=== PATIENT | male | born 1990 | race African-American/Black ===

== ENCOUNTER 2016-06-04 04:17 | Emergency (ER) | payer MEDICAID ==
[~2016-06-04] VITALS: Ht 180.3 cm; Wt 59.0 kg
[~2016-06-04 04:17] MED LIST: HYDR-523 PO
[2016-06-04 05:45] VITALS: BP 130/79
== END 2016-06-04 07:08 | disposition home or self-care (01) ==
LOC: ER 04:17
DX: J02.9 Acute pharyngitis, unspecified (principal); F17.200 Nicotine dependence, unspecified, uncomplicated; F12.10 Cannabis abuse, uncomplicated
CPT/HCPCS: 99283

== ENCOUNTER 2018-02-06 20:54 | Emergency (ER) | payer MEDICAID ==
[~2018-02-06] VITALS: Ht 182.9 cm; Wt 64.0 kg
[2018-02-07] MEDS ORDERED: ONDANSETRON 4MG ODT PO ONE (00:15)
[2018-02-07] MEDS ORDERED: FLUORESCEIN SODIUM 1MG/STRIP OP ONE (00:15)
[2018-02-07] MEDS ORDERED: MORPHINE SULFATE 10 MG/ML CPJ IM ONE (00:15)
[2018-02-07] MEDS ORDERED: TETRACAINE 0.5% OPHTH DROPS 4ML RIGHTEYE NR (00:45)
[2018-02-07] MEDS ORDERED: KETOROLAC 60MG/2ML VIAL IM ONE (01:45)
[2018-02-07 04:44] VITALS: BP 138/76
== END 2018-02-07 05:20 | disposition home or self-care (01) ==
LOC: ER 23:40
DX: H57.11 Ocular pain, right eye (principal); F12.10 Cannabis abuse, uncomplicated; F17.200 Nicotine dependence, unspecified, uncomplicated; Z98.890 Other specified postprocedural states
CPT/HCPCS: 96372; 99284; J1885; J2270; Q0162

== ENCOUNTER 2020-12-05 11:27 | Emergency (ER) | payer MEDICAID ==
[~2020-12-05] VITALS: Ht 175.3 cm; Wt 66.0 kg
[2020-12-05 12:23] LABS: BASOPHILS % 0.3 % (0.0-2.0); CHLORIDE 107 mEq/L (98-107); EOSINOPHILS % 0.2 % (0.0-5.0); HEMATOCRIT. 44.6 % (42.0-52.0); HEMOGLOBIN. 15.3 g/dL (14.0-18.0); LYMPHOCYTES % 10.9 % (20.0-50.0); MEAN CORPUSCULAR HEMOGLOBIN 28.8 pg (28.0-32.0); MEAN CORPUSCULAR VOLUME 84.1 fL (80.0-94.0); MEAN PLATELET VOLUME 8.7 fl (7.4-10.4); MONOCYTES % 3.2 % (2.0-8.0); NEUTROPHILS % 85.4 % (40.0-76.0); PLATELET 261 x1000/uL (130-400)
[2020-12-05] MEDS ORDERED: SODIUM CHLORIDE 0.9% 1,000 ML IV ONE (16:15)
[2020-12-05 16:38] LABS: *COCAINE SCREEN URINE PRESUMTIVE POSITIVE (NEGATIVE); CANNABINOID URINE SCREEN PRESUMTIVE POSITIVE (NEGATIVE); OPIATES URINE SCREEN NEGATIVE (NEGATIVE)
[2020-12-05 16:39] LABS: *AMPHETAMINES SCREEN URINE PRESUMTIVE POSITIVE (NEGATIVE); *BARBITURATES SCREEN URINE NEGATIVE (NEGATIVE); METHADONE URINE SCREEN NEGATIVE (NEGATIVE); PHENCYCLIDINE URINE SCREEN NEGATIVE (NEGATIVE)
[2020-12-05 16:40] LABS: *BENZODIAZEPINES SCREEN URINE NEGATIVE (NEGATIVE)
[2020-12-05 18:35] VITALS: BP 124/77
== END 2020-12-05 19:27 | disposition home or self-care (01) ==
LOC: ER 11:27
DX: F14.10 Cocaine abuse, uncomplicated (principal); F15.10 Other stimulant abuse, uncomplicated; F12.10 Cannabis abuse, uncomplicated; B20 Human immunodeficiency virus [HIV] disease
CPT/HCPCS: 36415; 70450; 71045; 80053; 80305; 80320; 85025; 93005; 99285; J7030; Z7610; G0480

== ENCOUNTER 2021-02-15 01:50 | Emergency (ER) | payer MEDICAID ==
[~2021-02-15] VITALS: Ht 182.9 cm; Wt 66.0 kg
[2021-02-15] MEDS ORDERED: HALOPERIDOL LACTATE 5MG/ML VIAL IM ONE (03:00)
[2021-02-15] MEDS ORDERED: KETOROLAC 15MG/ML VIAL IM ONE (03:00)
[2021-02-15 03:19] LABS: CLARITY URINE CLEAR (CLEAR); COLOR URINE YELLOW (YELLOW); KETONES URINE NEGATIVE (NEGATIVE); LEUKOCYTE ESTERASE URINE 2+ (NEGATIVE); NITRITE URINE NEGATIVE (NEGATIVE); OCCULT BLOOD URINE NEGATIVE (NEGATIVE); PROTEIN URINE 2+ (NEGATIVE); SPECIFIC GRAVITY URINE 1.021 (1.005-1.030)
[2021-02-15 03:38] LABS: *BARBITURATES SCREEN URINE NEGATIVE (NEGATIVE); *BENZODIAZEPINES SCREEN URINE NEGATIVE (NEGATIVE); *COCAINE SCREEN URINE NEGATIVE (NEGATIVE); CANNABINOID URINE SCREEN PRESUMTIVE POSITIVE (NEGATIVE); METHADONE URINE SCREEN NEGATIVE (NEGATIVE); OPIATES URINE SCREEN NEGATIVE (NEGATIVE)
[2021-02-15 03:40] LABS: *AMPHETAMINES SCREEN URINE NEGATIVE (NEGATIVE); PHENCYCLIDINE URINE SCREEN NEGATIVE (NEGATIVE)
[2021-02-15 03:43] LABS: BASOPHILS % 0.3 % (0.0-2.0); EOSINOPHILS % 0.4 % (0.0-5.0); HEMATOCRIT. 40.3 % (42.0-52.0); HEMOGLOBIN. 13.7 g/dL (14.0-18.0); LYMPHOCYTES % 11.2 % (20.0-50.0); MEAN CORPUSCULAR HEMOGLOBIN 28.2 pg (28.0-32.0); MEAN CORPUSCULAR VOLUME 82.9 fL (80.0-94.0); MEAN PLATELET VOLUME 8.6 fl (7.4-10.4); MONOCYTES % 6.7 % (2.0-8.0); NEUTROPHILS % 81.4 % (40.0-76.0); PLATELET 246 x1000/uL (130-400); RED BLOOD CELL COUNT 4.86 mill/uL (4.7-6.1); RED CELL DISTRIBUTION WIDTH 13.4 % (11.6-14.6)
[2021-02-15 03:44] LABS: CHLORIDE 107 mEq/L (98-107)
[2021-02-15 05:58] VITALS: BP 132/81
== END 2021-02-15 06:03 | disposition home or self-care (01) ==
LOC: ER 01:50
DX: F12.188 Cannabis abuse with other cannabis-induced disorder (principal); M79.10 Myalgia, unspecified site; Z98.890 Other specified postprocedural states; V29.40XA Motorcycle driver injured in collision with unspecified motor vehicles in traffic accident, initial encounter; Y93.89 Activity, other specified; Y92.488 Other paved roadways as the place of occurrence of the external cause
CPT/HCPCS: 36415; 70450; 71045; 74176; 80053; 80305; 81003; 83690; 85025; 86850; 86900; 86901; 87086; 96372; 99285; J1630; J1885

== ENCOUNTER 2021-03-15 19:24 | Emergency (ER) | payer MEDICAID ==
[~2021-03-15] VITALS: Ht 175.3 cm; Wt 73.0 kg
[2021-03-15] MEDS ORDERED: ONDANSETRON 4MG ODT PO STA (22:31)
[2021-03-15] MEDS ORDERED: FAMOTIDINE 20MG TABLET PO ONE (22:45)
[2021-03-16 00:20] VITALS: BP 136/81
[2021-03-16 00:30] LABS: BASOPHILS % 0.4 % (0.0-2.0); EOSINOPHILS % 0.3 % (0.0-5.0); HEMATOCRIT. 40.5 % (42.0-52.0); LYMPHOCYTES % 19.4 % (20.0-50.0); MEAN CORPUSCULAR HEMOGLOBIN 28.4 pg (28.0-32.0); MEAN PLATELET VOLUME 8.6 fl (7.4-10.4); MONOCYTES % 9.1 % (2.0-8.0); NEUTROPHILS % 70.8 % (40.0-76.0); PLATELET 263 x1000/uL (130-400); RED BLOOD CELL COUNT 4.94 mill/uL (4.7-6.1)
[2021-03-16 00:38] LABS: CHLORIDE 106 mEq/L (98-107)
== END 2021-03-16 00:20 | disposition home or self-care (01) ==
LOC: ER 19:24
DX: S93.491A Sprain of other ligament of right ankle, initial encounter (principal); W22.8XXA Striking against or struck by other objects, initial encounter; Y93.89 Activity, other specified; Y92.89 Other specified places as the place of occurrence of the external cause; Y99.8 Other external cause status; F17.290 Nicotine dependence, other tobacco product, uncomplicated; F12.10 Cannabis abuse, uncomplicated; K29.20 Alcoholic gastritis without bleeding
CPT/HCPCS: 36415; 73610; 80053; 83690; 85025; 99284; Q0162

== ENCOUNTER 2023-06-18 13:34 | Emergency (ER) | payer MEDICAID ==
[~2023-06-18] VITALS: Ht 182.9 cm; Wt 73.0 kg
[2023-06-18 13:40] VITALS: BP 134/85; PULSE 62; RESP 18; O2SAT 99
[2023-06-18] MEDS: ACETAMINOPHEN 325MG TABLET PO ONE (15:08)
[2023-06-18] MEDS: ONDANSETRON HCL 4MG/2ML INJ IV ONE (15:08)
[2023-06-18] MEDS: SODIUM CHLORIDE 0.9% 1,000 ML IV ONE (15:08)
[2023-06-18 15:13] LABS: BASOPHILS % 0.3 % (0.0-2.0); EOSINOPHILS % 0.1 % (0.0-5.0); HEMATOCRIT. 39.8 % (42.0-52.0); HEMOGLOBIN. 13.9 g/dL (14.0-18.0); LYMPHOCYTES % 14.4 % (20.0-50.0); MEAN CORPUSCULAR HEMOGLOBIN 28.9 pg (28.0-32.0); MEAN CORPUSCULAR HGB CONC 34.9 g/dL (31.0-37.0); MEAN CORPUSCULAR VOLUME 82.6 fL (80.0-94.0); MEAN PLATELET VOLUME 8.8 fl (7.4-10.4); MONOCYTES % 4.1 % (2.0-8.0); NEUTROPHILS % 81.1 % (40.0-76.0); PLATELET 225 x1000/uL (130-400); RED BLOOD CELL COUNT 4.81 mill/uL (4.7-6.1); RED CELL DISTRIBUTION WIDTH 15.1 % (11.6-14.6); WHITE BLOOD COUNT 8.4 x1000/uL (4.5-11.0)
[2023-06-18 15:19] LABS: CARBON DIOXIDE 26 mEq/L (21-32); CHLORIDE 108 mEq/L (98-107); POTASSIUM 3.5 mEq/L (3.5-5.1); SODIUM 142 mEq/L (136-145)
[2023-06-18 15:20] LABS: CALCIUM 9.1 mg/dL (8.7-10.4)
[2023-06-18 15:24] LABS: CREATININE 0.9 mg/dL (0.6-1.3); GLUCOSE 81 mg/dL (70-105)
[2023-06-18 15:25] LABS: UREA NITROGEN BLOOD 13 mg/dL (9-23)
[2023-06-18 15:26] LABS: ALANINE AMINOTRANSFERASE 11 IU/L (10-49); ALBUMIN 4.2 g/dL (3.2-4.8); ASPARTATE AMINOTRANSFERASE 27 IU/L (<34)
[2023-06-18 15:27] LABS: BILIRUBIN TOTAL 0.7 mg/dL (0.1-1.0); PROTEIN TOTAL 9.8 g/dL (6.0-8.3)
[2023-06-18] MEDS ORDERED: ONDA4TAB11 PO (16:49)
[2023-06-18 16:50] VITALS: TEMP 98.2
== END 2023-06-18 17:39 | disposition home or self-care (01) ==
LOC: ER 13:34
DX: R11.2 Nausea with vomiting, unspecified (principal); R10.9 Unspecified abdominal pain; F12.90 Cannabis use, unspecified, uncomplicated
CPT/HCPCS: 80053; 83690; 85025; 36415; 74176; 96361; 96374; 99285; J2405; J7030; Z7610 ×2